=== PATIENT | female | born 1955 | race Caucasian/White ===

== ENCOUNTER 2020-09-30 09:30 | Emergency (ER) | payer MEDICARE ==
[2020-09-30] MEDS ORDERED: HYDROXYZINE HCL50 MG PO (10:08)
== END 2020-09-30 10:22 | disposition home or self-care (01) ==
LOC: FER 09:30
DX: G47.00 Insomnia, unspecified (principal); F41.9 Anxiety disorder, unspecified; Z88.0 Allergy status to penicillin; Z87.891 Personal history of nicotine dependence
CPT/HCPCS: 99283

== ENCOUNTER → 2021-12-14 | Day surgery (SDC) | payer MEDICARE ==
[~2021-12-14] VITALS: Ht 157.5 cm; Wt 74.8 kg
[~2021-12-14] MED LIST: ALPRAZOLAM0.5 MG PO; CENTRUM SILVER1 EAC4 PO; ETODOLAC400 MG PO; HYDROXYZINE HCL50 MG PO; LAMICTAL200 MG PO; PRILOSEC20 MG PO; QUETIAPINE FUMA25 MG PO; ROXIFOL-D TA500 UNIT PO
[2021-12-14 10:02] LABS: HCT 43.1 % (37.0-47.0); HGB 14.3 g/dl (12.5-16.0); MCH 30.9 pg (25.0-31.0); MCHC 33.2 g/dL (32.0-36.0); MCV 93.1 fL (78.0-100.0); MPV 9.4 fL (6.0-9.5); RBC 4.63 M/uL (4.20-5.40); RDW 13.2 % (11.5-14.0); WBC 7.8 K/uL (4.0-10.5)
== END | disposition home or self-care (01) ==
LOC: FAS 07:00
PROVIDERS: Legal Medicine
DX: G56.03 Carpal tunnel syndrome, bilateral upper limbs (principal); M65.332 Trigger finger, left middle finger; Z98.84 Bariatric surgery status; Z88.0 Allergy status to penicillin
CPT/HCPCS: 36415; J2250; J2405; J2704; J2795; J3010; J7120

== ENCOUNTER 2021-12-21 11:07 | Emergency (ER) | payer MEDICARE ==
[2021-12-21] MEDS ORDERED: MIRALAX17 GM PO (14:54)
[2021-12-21] MEDS ORDERED: COLACE100 MG PO (14:54)
== END 2021-12-21 15:33 | disposition home or self-care (01) ==
LOC: FER 11:07
DX: K59.03 Drug induced constipation (principal); T40.2X5A Adverse effect of other opioids, initial encounter; K59.09 Other constipation; Z98.84 Bariatric surgery status; Z88.0 Allergy status to penicillin
CPT/HCPCS: 74019